=== PATIENT | male | born 1955 | race Caucasian/White ===

== ENCOUNTER 2017-11-27 10:13 | Day surgery (SDC) | payer MEDICARE, OTHER ==
[~2017-11-27] VITALS: Ht 182.9 cm; Wt 127.1 kg
[~2017-11-27 10:13] MED LIST: METO50 PO; TAMS0.4C67 PO; ZYRT1SYP PO
[2017-11-27] MEDS ORDERED: IOHEXOL 350 MG/ML 50 ML BTL (for Cath Lab) OTHER ONE (10:14)
[2017-11-27] MEDS ORDERED: METO-309 PO (10:43)
[2017-11-27] MEDS ORDERED: METF1000 PO (10:43)
[2017-11-27 10:46] VITALS: BP 161/97; PULSE 65; RESP 18; TEMP 97.9; O2SAT 96
[2017-11-27] MEDS ORDERED: NS 1000P @30 MLS/HR (KVO) IV SCH (11:00)
[2017-11-27] MEDS ORDERED: ASPIRIN 81 MG CHEW TAB PO SCH (11:00)
[2017-11-27 11:08] LABS: AUTOMATED NEUTROPHIL # 4.7 TH/MM3 (1.8-7.7); BASOPHIL # 0.1 TH/MM3 (0-0.2); BASOPHIL % 1.1 % (0.0-2.0); EOSINOPHIL # 0.4 TH/MM3 (0-0.4); EOSINOPHIL % 5.9 % (0.0-4.0); HEMATOCRIT 44.4 % (39.0-51.0); HEMOGLOBIN 15.3 GM/DL (13.0-17.0); LYMPH % 19.9 % (9.0-44.0); LYMPHOCYTE # 1.4 TH/MM3 (1.0-4.8); MEAN CELL VOLUME 88.9 FL (80.0-100.0); MEAN CORPUSCULAR HEMOGLOBIN 30.7 PG (27.0-34.0); MEAN CORPUSCULAR HGB CONC 34.5 % (32.0-36.0); MEAN PLATELET VOLUME 7.9 FL (7.0-11.0); MONO % 7.7 % (0.0-8.0); MONOCYTE # 0.6 TH/MM3 (0-0.9); NEUT % 65.4 % (16.0-70.0); PLATELET COUNT 282 TH/MM3 (150-450); RED BLOOD COUNT 4.99 MIL/MM3 (4.50-5.90); RED CELL DISTRIBUTION WIDTH 13.7 % (11.6-17.2); WHITE BLOOD COUNT 7.2 TH/MM3 (4.0-11.0)
[2017-11-27 11:20] LABS: PROTHROMBIN TIME - PATIENT 10.1 SEC (9.8-11.6)
[2017-11-27 11:23] LABS: BICARBONATE 26.5 MEQ/L (21.0-32.0); CALCIUM 8.9 MG/DL (8.5-10.1); CREATININE 1.02 MG/DL (0.60-1.30)
[2017-11-27] MEDS ORDERED: HEPARIN-NS/PF FLUSH BAG 1,000 ML IV FLUSH ONE (12:09)
[2017-11-27] MEDS ORDERED: MIDAZOLAM HCL 2 MG/2 ML VIAL ONE (12:10)
--- NOTE | 2017-11-27 13:11 | CATHPROC ---
[employer] HIS Report Study Information Study Number Admission Scheduled Start Study Start [id number] Nov 27 2017 10:13AM 11/27/2017 Nov 27 2017 11:52AM [facility] Cardiac Catheterization Admit Source Facility Department Other [facility] - Satellite Communications Engineer Physician and Clinical Staff Initial MD Merida, Danilo [place] Law Professor Emily Galaviz,MARQUIS Other cathlab, cathlab Recorder Mira Olguin,SET PAINTER TECH2 Scrub Eber Bloom,RT(R) Procedures Performed Procedure Location (Site) Vessel Name Coronary Angiograms LCA Left Coronary Coronary Angiograms RCA Right Coronary L Heart Cath LV Gram-hand inj. LV LV Ventricle Equipment Time Community Organization Worker Description Size Mfg Part Number Used/Scraped TRANSDUCER, TRUWAVE [id number] 11:[address] * Used W/STOCKCOCK *[id number] [id number] *[id number] *[id number] 11:53 MEDLINE IND[employer] PACK, CCL CUSTOM * Used *[id number] 11:53 Dr. Tariff PACER PEN, SKIN DUAL W/ RULER * Used *[id number] 11:53 Vision Critical WIRE, 3MMJ .035 180CM 180CM Used *[id number] 11:53 NAMIC MANIFOLD, 4 PORT * Used *[id number] 11:53 NYCOMED OMNIPAQUE, 350 MG, 150ML 150ML [id number] Used [id number] 11:53 [employer] MEDICAL BLANKET,WARM AIR CCL * Used *[id number] 11:53 TERUMTrueFacet MEDICAL SHEATH, FR4 TERUMO (10CM) FR 4 Used *[id number] History: Current Medications Medication Dosage/Unit Route Frequency Last Date/Time Taken ASA LOPRESSOR History: Allergies Allergy Reaction Sulfa (Sulfonamide Antibiotics) lisinopril aspirin ibuprofen cephalexin erythromycin base penicillin G levofloxacin Macrolide Antibiotics pantoprazole History: Risk Factors Family History of Hypertension Dyslipidemia Previous MD Previous Heart Failure Premature CAD Yes No No No No Prior Valve Prior PCI Prior CABG Surgery No No No Cerebrovascular Peripheral Artery Chronic Lung On Dialysis Diabetes Diabetes Therapy Disease Disease Disease No No No No Yes Oral History: Stress Tests Stress or Imaging Studies Performed Yes Standard Exercise Stress Test No Stress Echo No Stress Test SPECT No Stress Test CMR Stress Test CMR Result Stress Test CMR Ischemia Risk/Extent Yes Positive High Cardiac CTA Coronary Calcium Score No No History: Other Disease Selection Items HTN History: Other Current Smoker Method Quit Packs a Day Years Used Pack Years No Cigarettes 18 Years Ago 1 25 25 Labs Hgb (g/dl) Hct (%) RBC (MIL/MM3) WBC (l/cumm) Platelets (thousands) 11.60-17.00 35.00-51.00 4.00-5.90 4.00-11.00 150.00-450.00 15.3 44.4 4.9 7.2 282 Glucose (mg/dl) BUN (mg/dl) Creatinine (mg/dl) BUN:Creatinine (1:x) 74.00-106.00 7.00-18.00 0.50-1.30 10.00-20.00 151 16 1.0 16 Na (meq/l) K (meq/l) Cl (meq/l) CO2 (mmol/L) Ca (mg/dl) 136.00-145.00 3.50-5.10 98.00-107.00 21.00-32.00 8.50-10.10 138 4 104 26.5 8.9 PT (sec) PTT (sec) INR (PTT:PT) 9.80-11.60 24.30-30.10 0.90-1.10 10.1 23 1 Medication Medication Total Dose (Bolus/Oral) Medication Total Dosage/Unit 1% XYLOCAINE 20 mL Medications (Bolus/Oral) Medication Time Given Dosage/Unit Administered By Reason 1% XYLOCAINE 11/27/2017 12:50:41 PM 20 mL Danilo Merida 20 mL 1% XYLOCAINE given in lab by Danilo Merida in Right Groin via Subcutaneous. Ordered by Danilo Powell. Medication (Drip) Medication Time Given Dosage/Unit Concentration/Unit Diluent (ml) Solution IV Solutions 11/27/2017 12:08:37 PM 0 mL (IV) 500 NaCl .9 Patient arrived on IV Solutions given by Emily Galaviz RN in Left Antecubital via Peripheral IV. P ump/Drip Flow = 20 ml/hr using NaCl .9. Ordered by Danilo Merida. Initial Case Assessment Cardiovascular HR NIBP 61 157/83 Edema Present Skin color Skin None Normal Warm Dry Circulatory - Right Pulses Dorsalis Pedis Femoral 1 3 Scale (0,1,2,3,4,d) Circulatory - Left Pulses Dorsalis Pedis Femoral 1 3 Scale (0,1,2,3,4,d) Neurological State Oriented to time-place- Alert Moves all extremities person Respiration - General Respiration Rate SpO2 (%) (B/min) 18 97 Final Case Assessment Cardiovascular HR NIBP 53 147/86 Edema Present Skin color Skin None Normal Warm Dry Circulatory - Right Pulses Dorsalis Pedis Femoral 1 3 Scale (0,1,2,3,4,d) Circulatory - Left Pulses Dorsalis Pedis Femoral 1 3 Scale (0,1,2,3,4,d) Neurological State Oriented to time-place- Alert Moves all extremities person Respiration - General Respiration Rate SpO2 (%) (B/min) 15 95 Chronological Log Time Study Chronological Log 12:05:23 Patient arrived via Bed. 12:08:27 Patient Name, D.O.B, / Armband Verified By R.N. 12:08:28 Consent signed by the physician and the patient and verified by the Satellite Communications Engineer staff. 12:08:29 Pre-op and post- op instructions given; patient acknowledges understanding of instructions. 12:08:31 Patient has been NPO for More than 6Hrs. 12:08:32 NO Skin Breakdown- 12:08:33 Patient Warmer Placed on the Table. 12:08:34 Miguel Prominences Protected 12:08:36 A # 20 IV was noted in the Antecubital (left). Grade = 0 Patient arrived on IV Solutions given by Emily Galaviz, RN in Left Antecubital via Peripheral IV. Pump/Drip Flow = 20 12:08:37 ml/hr using NaCl .9. Ordered by Danilo Merida. 12:08:38 History and physical on the chart or being dictated. Vitals capture started with the following parameters, Patient=Adult, Interval=5 min, Initial Pr smxcoh=075 mmHg, 12:09:42 Deflation Rate=5 mmHg, Cuff placed on Unknown 12:10:25 HR=61 bpm, IIVA=491/83 mmhg, SpO2=97.0 %, Resp=18 B/min, Pain=0, Jasmin=10, Salguero=2 Assessment: Initial Case, HR=61 BPM, OGOI=148/83 mmhg, Edema=None, Color=Normal, Skin = Warm, D ry Right Pulses: Rashad Ped=1, Femoral=3 12:10:59 Left Pulses: Rashad Ped=1, Femoral=3 Neurological: State=Alert, Ox3, LANE Respiration: Resp=18 B/min, SpO2=97 % 12:11:13 Reference ECG taken 12:15:22 HR=67 bpm, DRFA=377/98 mmhg, SpO2=97.0 %, Resp=16 B/min, Pain=0, Jasmin=10, Salguero=2 12:15:36 Bilateral groins prepped with 2% chlorhexidine, and draped after a 3 minute waiting time. 12:19:24 MD paged 12:20:21 HR=63 bpm, XKCC=889/95 mmhg, SpO2=97.0 %, Resp=14 B/min, Pain=0, Jasmin=10, Salguero=2 12:20:55 MD responded 12:21:59 Pressure channel 1 zeroed. 12:25:27 HR=62 bpm, QNWT=466/86 mmhg, SpO2=97.0 %, Resp=14 B/min, Pain=0, Jasmin=10, Salguero=2 12:30:23 HR=55 bpm, UGBA=557/88 mmhg, SpO2=96.0 %, Resp=14 B/min, Pain=0, Jasmin=10, Salguero=2 12:35:22 HR=54 bpm, DGUN=312/80 mmhg, SpO2=97.0 %, Resp=17 B/min, Pain=0, Jasmin=10, Salguero=2 12:41:09 HR=53 bpm, PEDU=818/81 mmhg, SpO2=97.0 %, Resp=12 B/min, Pain=0, Jasmin=10, Salguero=2 12:44:11 MD arrived. 12:44:14 Contrast Scanned 12:44:15 Immediate Presedation assesment performed by physician. 12:45:23 HR=56 bpm, LMQN=436/83 mmhg, SpO2=97.0 %, Resp=14 B/min, Pain=0, Jasmin=10, Salguero=2 Time Out. Correct patient, correct procedure, correct physician, power injector not loaded with contrast with surgical 12:48:57 team present. Time Out Concurred by MD and individual staff in procedure. 12:49:17 Case Start 12:50:26 HR=58 bpm, WAOI=402/88 mmhg, SpO2=97.0 %, Resp=17 B/min, Pain=0, Jasmin=10, Salguero=2 20 mL 1% XYLOCAINE given in lab by Danilo Merida in Right Groin via Subcutaneous. Ordered by Magnolia, 12:50:41 Danilo. 12:50:50 Access site was Right Femoral Artery. 12:50:56 A SHEATH, FR4 TERUMO (10CM) FR 4 was advanced into the Fem Art (right) using the Modified S eldinger technique. A JR 4.0 INFINITI CATHETER FR 4 was advanced over a wire. OMNIPAQUE, 350 MG, 150ML 150ML was us ed for 12:51:44 injections. 12:52:00 The LV was manually injected with 10 cc's and visualized. OMNIPAQUE, 350 MG, 150ML 150ML us ed. Recorded Pressure: LV, HR=75, Condition=Condition 1 12:52:46 (Left Ventricle) LV 136/17/8 Recorded Pressure: LV, Ao, HR=66, Condition=Condition 1 12:52:50 (Left Ventricle) LV 136/17/8, (Aorta) Ao 147/77/108 Recorded Pressure: Ao, HR=63, Condition=Condition 1 12:53:20 (Aorta) Ao 139/82/107 12:53:23 The RCA was injected and visualized at various angles. OMNIPAQUE, 350 MG, 150ML 150ML used . 12:53:33 Catheter was removed A JL 4.0 INFINITI CATHETER FR 4 was advanced over a wire. OMNIPAQUE, 350 MG, 150ML 150ML was us ed for 12:53:34 injections. 12:54:53 The LCA was injected and visualized at various angles. OMNIPAQUE, 350 MG, 150ML 150ML used . 12:55:29 HR=62 bpm, QCGF=076/79 mmhg, SpO2=96.0 %, Resp=20 B/min, Pain=0, Jasmin=10, Salguero=2 12:56:09 Catheter was removed 12:57:40 Case End 12:58:04 Catheter(s) removed without difficulty 12:58:47 Sheath removed; pressure applied to access site. 12:59:24 No case complications noted. 13:00:26 HR=64 bpm, OIPB=372/85 mmhg, SpO2=95.0 %, Resp=16 B/min, Pain=0, Jasmin=10, Salguero=2 13:05:29 HR=53 bpm, AUBZ=086/86 mmhg, SpO2=95 %, Resp=15 B/min, Pain=0, Jasmin=10, Salguero=2 Assessment: Final Case, HR=53 BPM, WOCS=178/86 mmhg, Edema=None, Color=Normal, Skin = Warm, Dr y Right Pulses: Rashad Ped=1, Femoral=3 13:09:13 Left Pulses: Rashad Ped=1, Femoral=3 Neurological: State=Alert, Ox3, LANE Respiration: Resp=15 B/min, SpO2=95 % 13:09:29 Sterile dressing applied to site 13:09:33 A Left Heart Cath was performed. 13:10:15 Vitals capture stopped. 13:11:35 Patient moved to stretcher End Study - Contrast Media Used In Study Contrast Total Opened (mL) Total Used (mL) Total Wasted (mL) Omnipaque 40 40 0 End Study - Maximum Contrast Load Max Contrast Load (mL) 635.0 End Study - Radiation Exposure Fluoro Time (minutes) 1.0 End Study - Sheaths Sheaths Pulled By Sheath Hold Time (min) Eber Bloom 10 End Study - Patient Disposition Complications Transferred To Interventional Outcome No Satellite Communications Engineer Holding No attempt made
--- NOTE | 2017-11-27 13:24 | MR ---
cc: Danilo Merida MD 11/27/2017 PROCEDURE PERFORMED: Left heart catheterization, left ventriculography, coronary angiography. INDICATIONS: New onset cardiac symptoms of chest pain at rest, unstable angina, Georgian Cardiovascular class IV angina, diabetes mellitus, large fixed defect in the posterior wall, inferior wall, apical wall. High risk myocardial perfusion study. EF 58%. Coronary artery disease. PROCEDURAL STATEMENT: The patient was brought to the cardiac catheterization laboratory, prepped and draped in the usual sterile fashion. A 10 mL of 1% lidocaine was used to locally anesthetize the right common femoral artery. A 4-Colombian sheath subsequently placed in the right common femoral artery. A 4-Colombian JL4, JR4 catheters were used to perform left and right coronary angiography, left ventriculography. FINDINGS: The LV pressure is 135/10-15. EF 65%. The right coronary artery is dominant and has [id number] diffuse disease in the proximal mid segment up with a 30-40% angiographically. The left main coronary artery has no significant disease angiographically. The LAD is fibrocalcific fluoroscopically in the ostial proximal segment. It is a transapical vessel. It has a 50% stenosis at the bifurcation with the second diagonal artery, which is a small to medium sized vessel. The proximal segment has diffuse disease up to 20% angiographically. The left circumflex vessel has a 40-50 percent stenosis after the first obtuse marginal vessel. The vessel is ectatic after that as well possibly making the stenosis appear more significant than it is physiologically. The first obtuse marginal vessel is a small 0.5 mm vessel. No significant obstructive disease. The second obtuse marginal vessel comes off the mid left circumflex and has an ostial 40-50 percent stenosis. It is a medium size vessel with a reference vessel diameter of 2.75 mm in diameter and the distal left circ AV groove segment has a long 30-40% stenosis. It gives off a small to medium size posterolateral artery with no significant obstructive disease. CONCLUSIONS: 1. Angiographically mild to moderate 3-vessel coronary artery disease in a right dominant system. 2. Normal left ventricular systolic function with ejection fraction 65%. 3. Note, the patient is currently asymptomatic. 3. Recommend aspirin 81 mg a day. We will check fasting lipids, ALT, CK, treat per NCCP guidelines. I have instructed the patient by myself personally to hold his metformin/Glucophage for 48 hours post-procedure. Followup with me on or Sunday, 11/29 or 11/30 for further evaluation and management. MD VERONICA Montes/KELLY , 01:04 PM , 01:23 PM
[2017-11-27] MEDS ORDERED: MISC INFORMATION XX ONE (13:30)
[2017-11-27] MEDS ORDERED: SODIUM CHLORIDE 0.9% FLUSH 10 ML FLUSH IV FLUSH PRN (13:30)
[2017-11-27 14:36] LABS: ALBUMIN 3.4 GM/DL (3.4-5.0)
[2017-11-27 14:40] LABS: CHOLESTEROL/ HDL RATIO 3.58 RATIO; DIRECT BILIRUBIN ADULT 0.1 MG/DL (0.0-0.2); HDL CHOLESTEROL 39.3 MG/DL (40.0-60.0); INDIRECT BILIRUBIN 0.6 MG/DL (0.0-0.8); TOTAL BILIRUBIN ADULT 0.7 MG/DL (0.2-1.0); TOTAL PROTEIN 6.6 GM/DL (6.4-8.2)
[2017-11-27] MEDS ORDERED: SODIUM CHLORIDE 0.9% FLUSH 10 ML FLUSH IV FLUSH SCH (21:00)
--- NOTE | 2017-11-28 21:00 | EKG ---
Date Performed: 11/27/2017 Time Performed: 10:52:56 PTAGE: 62 years EKG: Sinus bradycardia. Normal ECG except for rate PREVIOUS TRACING : 12/17/2011 15.27 Since the previous tracing, no significant change not ed DOCTOR: Ambrocio Marshall Interpretating Date/Time 11/28/2017 20:59:28
== END 2017-11-27 15:11 | disposition home or self-care (01) ==
LOC: HDOC 10:13 → HDIC 10:14 → HDOC 15:11
PROVIDERS: ATTEND Internal Medicine Interventional Cardiology
DX: I25.10 Atherosclerotic heart disease of native coronary artery without angina pectoris (principal); E11.9 Type 2 diabetes mellitus without complications; I10 Essential (primary) hypertension; Z79.84 Long term (current) use of oral hypoglycemic drugs
CPT/HCPCS: 80048; 80061; 80076; 82550; 85025; 85610; 85730; 93005; 93458; C1769; C1893; J1644; J2250; J3010; Q9967